=== PATIENT | male | born 1990 | race Caucasian/White ===

== ENCOUNTER 2016-12-17 01:12 | Emergency (ER) | payer MEDICARE | END 2016-12-17 03:13 | disposition home or self-care (01) | LOC: ER 01:12 | DX: L03.113 Cellulitis of right upper limb (principal); F39 Unspecified mood [affective] disorder; Z79.899 Other long term (current) drug therapy; Z88.6 Allergy status to analgesic agent; Z88.8 Allergy status to other drugs, medicaments and biological substances | CPT/HCPCS: 73120; 96372; 99283; 99283-25 ==

== ENCOUNTER 2016-12-29 17:59 | Emergency (ER) | payer MEDICARE ==
[2016-12-29 18:27] LABS: BASO # 0.1 10_X3_uL (0.0-0.1); BASO % 1.6 % (0.2-1.2); EOS # 0.3 10_X3_uL (0.0-0.5); EOS % 3.9 % (0.8-7.0); GRAN # 3.9 10_X3_uL (1.8-5.4); GRAN % 58.4 % (34.0-67.9); HEMATOCRIT 45.1 % (40-51); HEMOGLOBIN 15.9 g/dL (13.7-17.5); MEAN CORPUSCULAR HEMOGLOBIN 31.8 pg (27.0-33.0); MEAN CORPUSCULAR HGB CONC 35.3 g/dL (32.0-36.0); MEAN CORPUSCULAR VOLUME 90.2 fL (79-92); MEAN PLATELET VOLUME 12.1 fl (7.5-11.5); MONO # 0.4 10_X3_uL (0.3-0.8); MONO % 6.1 % (5.3-12.2); PLATELET COUNT 155 x10_3/uL (163-337); RED CELL DISTRIBUTION WIDTH 12.7 % (11.6-14.4); WHITE BLOOD COUNT 6.7 x10_3/uL (4.2-9.1)
[2016-12-29 18:37] LABS: BLOOD UREA NITROGEN 6 mg/dL (7-18); CALCIUM 8.9 mg/dL (8.7-10.7); CARBON DIOXIDE 25 mmol/L (21-32); CREATININE 0.9 mg/dL (0.6-1.3); GLUCOSE,RANDOM 111 mg/dL (70-99); POTASSIUM 3.8 mmol/L (3.5-5.1); SODIUM 142 mmol/L (136-145)
== END 2016-12-29 19:37 | disposition home or self-care (01) ==
LOC: ER 17:59
PROVIDERS: General Practice
DX: R07.89 Other chest pain (principal); J84.9 Interstitial pulmonary disease, unspecified; F20.9 Schizophrenia, unspecified; F43.10 Post-traumatic stress disorder, unspecified; E78.5 Hyperlipidemia, unspecified; G40.909 Epilepsy, unspecified, not intractable, without status epilepticus; F17.210 Nicotine dependence, cigarettes, uncomplicated; Z88.6 Allergy status to analgesic agent; Z88.8 Allergy status to other drugs, medicaments and biological substances; Z91.040 Latex allergy status; Z79.899 Other long term (current) drug therapy; Z79.1 Long term (current) use of non-steroidal anti-inflammatories (NSAID)
CPT/HCPCS: 36415; 71010; 80048; 85025; 85379; 87400; 93005; 99284; 99285-25

== ENCOUNTER 2016-12-31 03:29 | Emergency (ER) | payer MEDICARE | END 2016-12-31 04:08 | disposition home or self-care (01) | LOC: ER 03:29 | DX: S60.221A Contusion of right hand, initial encounter (principal); W22.09XA Striking against other stationary object, initial encounter; Y92.009 Unspecified place in unspecified non-institutional (private) residence as the place of occurrence of the external cause; Z88.6 Allergy status to analgesic agent; Z88.8 Allergy status to other drugs, medicaments and biological substances; Z79.899 Other long term (current) drug therapy | CPT/HCPCS: 73120; 99070; 99283; 99283-25 ==

== ENCOUNTER 2017-01-09 18:18 | Emergency (ER) | payer MEDICARE, OTHER | END 2017-01-09 19:45 | disposition home or self-care (01) | LOC: ER 18:18 | DX: K40.90 Unilateral inguinal hernia, without obstruction or gangrene, not specified as recurrent (principal); R10.30 Lower abdominal pain, unspecified; F17.210 Nicotine dependence, cigarettes, uncomplicated; Z88.8 Allergy status to other drugs, medicaments and biological substances; Z88.6 Allergy status to analgesic agent | CPT/HCPCS: 99282; 99283 ==

== ENCOUNTER → 2017-01-21 | Day surgery (SDC) | payer MEDICARE, OTHER | LOC: OPS 08:53 | PROC: 0DB48ZZ Excision of Esophagogastric Junction, Via Natural or Artificial Opening Endoscopic (ICD-10-PCS; principal; 2017-01-21) | PROC: 0DB78ZZ Excision of Stomach, Pylorus, Via Natural or Artificial Opening Endoscopic (ICD-10-PCS; 2017-01-21) | DX: R10.32 Left lower quadrant pain (principal); K92.1 Melena; J44.9 Chronic obstructive pulmonary disease, unspecified; K21.9 Gastro-esophageal reflux disease without esophagitis; K29.80 Duodenitis without bleeding; F41.9 Anxiety disorder, unspecified; F32.9 Major depressive disorder, single episode, unspecified; R14.2 Eructation; R12 Heartburn; E78.00 Pure hypercholesterolemia, unspecified; E55.9 Vitamin D deficiency, unspecified; F17.210 Nicotine dependence, cigarettes, uncomplicated; R07.9 Chest pain, unspecified; F20.9 Schizophrenia, unspecified; G56.00 Carpal tunnel syndrome, unspecified upper limb; G40.909 Epilepsy, unspecified, not intractable, without status epilepticus; Z88.8 Allergy status to other drugs, medicaments and biological substances; Z91.040 Latex allergy status; Z79.899 Other long term (current) drug therapy; Z88.6 Allergy status to analgesic agent; Z79.1 Long term (current) use of non-steroidal anti-inflammatories (NSAID) ==

== ENCOUNTER 2017-01-25 18:27 | Emergency (ER) | payer MEDICARE, OTHER | END 2017-01-25 19:56 | disposition home or self-care (01) | LOC: ER 18:27 | DX: R07.89 Other chest pain (principal); R42 Dizziness and giddiness; R06.02 Shortness of breath; F41.9 Anxiety disorder, unspecified; F31.9 Bipolar disorder, unspecified; F17.210 Nicotine dependence, cigarettes, uncomplicated; Z79.899 Other long term (current) drug therapy; Z88.6 Allergy status to analgesic agent; Z88.8 Allergy status to other drugs, medicaments and biological substances ==

== ENCOUNTER → 2017-02-08 | Day surgery (SDC) | payer MEDICARE, OTHER ==
[~2017-02-08] VITALS: Ht 188 cm; Wt 109.8 kg
== END ==
LOC: OPS 07:36
PROC: 0DJD8ZZ Inspection of Lower Intestinal Tract, Via Natural or Artificial Opening Endoscopic (ICD-10-PCS; principal; 2017-02-08)
DX: K92.1 Melena (principal); R10.32 Left lower quadrant pain; J44.9 Chronic obstructive pulmonary disease, unspecified; I25.10 Atherosclerotic heart disease of native coronary artery without angina pectoris; F17.210 Nicotine dependence, cigarettes, uncomplicated; F43.10 Post-traumatic stress disorder, unspecified; F20.9 Schizophrenia, unspecified; G40.909 Epilepsy, unspecified, not intractable, without status epilepticus; G56.00 Carpal tunnel syndrome, unspecified upper limb; Z79.1 Long term (current) use of non-steroidal anti-inflammatories (NSAID); Z79.899 Other long term (current) drug therapy; Z88.6 Allergy status to analgesic agent; Z88.8 Allergy status to other drugs, medicaments and biological substances; Z91.040 Latex allergy status
CPT/HCPCS: 45378; 94664; 99070; J2704

== ENCOUNTER 2017-02-21 16:45 | Emergency (ER) | payer OTHER, MEDICARE | END 2017-02-21 18:27 | disposition home or self-care (01) | LOC: ER 16:45 | DX: S60.221A Contusion of right hand, initial encounter (principal); R45.4 Irritability and anger; W22.09XA Striking against other stationary object, initial encounter; Y92.009 Unspecified place in unspecified non-institutional (private) residence as the place of occurrence of the external cause; J44.9 Chronic obstructive pulmonary disease, unspecified; K21.9 Gastro-esophageal reflux disease without esophagitis; E78.5 Hyperlipidemia, unspecified; F20.9 Schizophrenia, unspecified; Z88.6 Allergy status to analgesic agent; Z88.8 Allergy status to other drugs, medicaments and biological substances; Z79.899 Other long term (current) drug therapy | CPT/HCPCS: 73130; 99283; 99283-25 ==